=== PATIENT | male | born 1940 | race Caucasian/White ===

== ENCOUNTER 2021-04-06 09:52 | Inpatient (IN) ==
--- NOTE | 2021-04-01 14:06 | Anesthesiology Consultation ---
Date of Service April 01, 2021 Assessment & Plan (1) Encounter for pre-operative examination: - check BSG am DOS. - COVID screening: Per financial sales representative on 04/01/2021: Travel screen negative, no known COVID-19 positive contacts or current COVID-19 related symptoms in past 2 weeks. Patient vaccinated. Surgeon arranging preop COVID testing, scheduled 04/02/2021. Awaiting results. Chart Review Chart Review: Acceptable Risk for Surgery and Patient NOT seen in Pre Admission Testing History Surgery Operation Date: 04/06/21 09:50 Proposed Procedures p Transurethral Resection Prostate - Cole Ramírez MD Height/Weight Height: 6 ft Weight: 88.451 kg Allergies Allergy/AdvReac Type Severity Reaction Status Date / Time No Known Allergies Allergy Verified 04/01/21 13:19 Medications Home Medications Medication Instructions Recorded Confirmed Last Taken metformin 500 mg tablet 500 mg PO BID 02/03/21 04/01/21 Unknown dutasteride 0.5 mg capsule 0.5 mg PO PM 04/01/21 04/01/21 Unknown tamsulosin 0.4 mg capsule 0.4 mg PO PM 04/01/21 04/01/21 Unknown Past Medical History Medical History (Updated 04/01/21 @ 14:29 by Sofia House PA-C) BPH (benign prostatic hyperplasia) Diabetes NIDDM Osteoarthritis Urinary retention Past Surgical History Surgical History History of cataract surgery bilat History of cholecystectomy History of colonoscopy History of tooth extraction Social History Smoking Status: Never smoker Do You Dip or Chew Tobacco: No Hx Alcohol Use: Yes Alcohol type: hard liquor alcohol intake frequency: a few times a month Hx Substance Use: No substance use type: does not use Testing Electrocardiogram Date: 03/19/21 NSR, rate 82 bpm Chest X-Ray Date: 03/19/21 No acute cardiopulmonary disease
[~2021-04-06 09:52] MED LIST: LR 15ML/HR IV SCH; ceFAZolin 2000MG 2,000 MG/15 ML SYR IV SCH
[2021-04-06] MEDS ORDERED: LIDOCAINE 2% 2 ML VIAL/AMP(20MG/ML) INFIL ONE (10:29)
[2021-04-06] MEDS ORDERED: PROPOFOL IV EMULSION 10 MG/ML 20 ML VIAL IV ONE (10:29)
[2021-04-06] MEDS ORDERED: fentaNYL citrate 100 MCG/2 ML VIAL ONE (10:29)
[2021-04-06] MEDS ORDERED: HYDROmorphone INJ 2 MG/ML SYR/VIAL IV PRN (10:46)
[2021-04-06] MEDS ORDERED: ATROPINE SULFATE 0.1 MG/ML 10ML SYR IV PRN (10:46)
[2021-04-06] MEDS ORDERED: PROMETHAZINE HCL 12.5 MG in SODIUM CHLORIDE 0.9% 50 ML IV PRN (10:46)
[2021-04-06] MEDS ORDERED: ONDANSETRON INJ 2 MG/ML 2 ML VIAL IV PRN ×2 (10:46→13:56)
[2021-04-06] MEDS ORDERED: ePHEDrine sulfate 50 MG/ML AMP IV PRN (10:46)
[2021-04-06] MEDS ORDERED: fentaNYL citrate 100 MCG/2 ML VIAL IV PRN (10:46)
--- NOTE | 2021-04-06 11:19 | History & Physical Report ---
Date of Service April 06, 2021 Assessment & Plan (1) Urinary retention: (2) BPH w/o urinary obs/LUTS: Plan: We reviewed his urinary retention and the plan for TURP. We reviewed the risks and benefits of the procedure including bleeding, infection, injury to nearby structures, need for additional procedure, ongoing urinary retention, urinary leakage. He expressed understanding and agrees to proceed with TURP. History of Present Illness Chief Complaint: Urinary retention Primary Care Provider: Barry Stevenson This is a 80-year-old male with history of enlarged prostate, who has recently been evaluated in the urology office for urinary retention. He has required catheters and has failed voiding trials, and is currently catheter dependent. He had a cystoscopy which demonstrated significant prostatic hyperplasia. Review of outside CT scan indicates that his prostate is probably 90 to 100 g in size. He was seen earlier this year, at which time we discussed options for outlet surgery including TURP, Holep or even simple prostatectomy. He elected to undergo TURP and presents to the OR today for this procedure. Allergies Allergy/AdvReac Type Severity Reaction Status Date / Time No Known Allergies Allergy Verified 04/06/21 10:12 Home Medications Medication Instructions Recorded Confirmed Type metformin 500 mg tablet 500 mg PO BID 02/03/21 04/06/21 History dutasteride 0.5 mg capsule 0.5 mg PO PM 04/01/21 04/06/21 History tamsulosin 0.4 mg capsule 0.4 mg PO PM 04/01/21 04/06/21 History Past Med/Surg History Medical History BPH (benign prostatic hyperplasia) Diabetes NIDDM Osteoarthritis Urinary retention Surgical History History of cataract surgery bilat History of cholecystectomy History of colonoscopy History of tooth extraction Social History (Updated 02/03/21 @ 15:16 by Mica Simons) Smoking Status: Never smoker Second Hand Exposure: No; Do You Dip or Chew Tobacco: No; Tobacco Cessation Education Requested by Patient: No Hx Alcohol Use: Yes Alcohol type: hard liquor Hx Substance Use: No Preferred Language: Qatari Communication Ability: Effective Leaf Blender Required: No Beliefs That Will Affect Care: None marital status: Current Living Situation: Spouse current occupational status: retired Other Information That Helps Us Care for You: No Feels Safe at Home: Yes Safety Concerns: Feels Safe At This Time Assistive Devices: Glasses Review of Systems 14 point review of systems negative except for otherwise indicated. Physical Exam Constitutional: well developed and well nourished; no acute distress Eyes: + anicteric sclerae; pupils not irregular Respiratory: normal respiratory effort; no respiratory distress, does not use accessory muscles and no cough Cardiovascular: well perfused Gastrointestinal (Abdomen): Inspection/Auscultation: abdomen normal to inspection; abdomen not distended Musculoskeletal: Extremities: extremities normal to inspection Skin: normal turgor; no rashes and no lesions Neurologic: moves all extremities and awake Psychiatric: Orientation: alert and oriented x 3 Results & Data ([facility]) Vital Signs (Past 12 Hours) Vital Signs Temp Pulse Resp BP Pulse Ox 04/06/21 10:03 36.9 C 91 H 20 151/88 H 97
[2021-04-06] MEDS ORDERED: ONDANSETRON INJ 2 MG/ML 2 ML VIAL ONE (12:14)
[2021-04-06] MEDS ORDERED: PHENYLEPHRINE 100MCG/ML 5ML SYR ONE (12:14)
[2021-04-06] MEDS ORDERED: ePHEDrine sulfate 50 MG/ML SYR ONE (12:34)
--- NOTE | 2021-04-06 12:44 | Operative Report ---
PG Post Operative Report Pre & Post Diagnosis Operation Date: 04/06/21 11:45 Pre-Op Diagnosis: Urinary Retention Benign Prostatic Hyperplasia Post-Op Diagnosis: Urinary Retention Benign Prostatic Hyperplasia I identified the patient and participated in the time-out.: Yes Procedure Operation Date: 04/06/21 11:45 Actual Procedures p Transurethral Resection Prostate(Not Applicable) - Cole Ramírez MD Surgeon Cole Ramírez MD Chef Kitchen Manager none Estimated Blood Loss 25 Findings Consistent with Post-Op Diagnosis Specimens prostate chips Drains 22 Cypriot three-way Keller catheter per urethra, 30 mL in the balloon, with CBI running. Anesthesia Type General Complications none Disposition Disposition: Recovery Room Indications This is a 80-year-old male who was recently seen in the the urology office for evaluation of BPH and urinary retention. After thorough counseling, he agreed to proceed with TURP, and presents the OR today for this procedure. Description of Procedure The patient was identified in the holding area and informed consent was confirmed. He was taken to the operating room where general anesthesia was initiated. He was placed in the dorsal lithotomy position with all pressure points appropriately padded. He was prepped and draped in the usual sterile fashion and a preoperative timeout was performed. A well-lubricated resectoscope was inserted per urethra and panendoscopy was performed. The pendulous urethra was normal with no strictures or mucosal abnormalities. The prostate was notably enlarged with what appeared to be an intravesical component. The bladder was trabeculated and ureteral orifices were visualized in orthotopic position. The prostate was systematically resected, starting with the median lobe, taking resection down until the capsular fibers could be identified. The proximal resection was up to the bladder neck, taking care not to injure the ureteral orifices. The distal resection extended to the verumontanum, taking care to avoid the sphincter. The lateral lobes were then resected down. Due to the large size of the prostate, on the lateral aspects the resection did not reach down to the capsule, however at the end of resection there was a nice, open channel. Meticulous hemostasis was obtained using the button electrode. The prostate chips were evacuated from the bladder and sent for pathologic analysis. A final inspection demonstrated no injury to the ureteral orifices or the sphincter, no remaining prostate chips, and excellent hemostasis at low pressure. A 22 Fr 3-way keller catheter was placed. The balloon was inflated with 30 mL of normal saline and the catheter was attached to gravity drainage with continuous irrigation running. The patient was then awakened from anesthesia and was brought to the PACU in stable condition. I attest to the content of the Intraoperative Record and any orders documented therein. Any exceptions are noted below.
--- NOTE | 2021-04-06 13:37 | Anesthesiology Progress Note ---
Date of Service April 06, 2021 Anesthesia Post Procedure Vital Signs Vital Signs: Temp Pulse Pulse Resp BP Pulse Ox 04/06/21 13:25 36.4 C L 62 14 116/68 94 04/06/21 13:15 73 18 114/73 95 04/06/21 13:05 72 18 117/72 94 04/06/21 12:55 74 17 105/75 94 04/06/21 12:45 36.3 C L 74 20 124/71 95 04/06/21 10:03 36.9 C 91 H 20 151/88 H 97 Transfer of Care Handoff Completed per policy Notes Mental Status: alert / awake / arousable and participated in evaluation Patient Amnestic to Procedure: Yes Nausea / Vomiting: adequately controlled Pain: adequately controlled Airway Patency, RR, SpO2: stable & adequate BP & HR: stable & adequate Hydration State: stable & adequate Anesthetic Complications: no major complications apparent
[2021-04-06] MEDS ORDERED: ACETAMINOPHEN 325 MG TAB PO PRN (13:56)
[2021-04-06] MEDS ORDERED: oxyCODONE HCL IR 5 MG TAB (IMMEDIATE RELEASE) PO PRN (13:56)
[2021-04-06] MEDS ORDERED: BELLADONNA/OPIUM SUPP 60 MG SUPP PR PRN (13:56)
[2021-04-06] MEDS ORDERED: HYDROmorphone INJ 0.5 MG/0.5 ML SYR IV PRN (13:56)
[2021-04-06] MEDS ORDERED: PHARMACY GLYCEMIC MGMT CONSULT PRN (13:56)
[2021-04-06] MEDS: LACTATED RINGER'S 1,000 ML IV SCH ×2 (14:08→21:57)
[2021-04-06] MEDS ORDERED: GLUCOSE 10 TABS/TUBE PO PRN (14:30)
[2021-04-06] MEDS ORDERED: GLUCAGON FOR INJ 1 MG VIAL IM PRN (14:30)
[2021-04-06] MEDS ORDERED: CARBOHYDRATES FOR HYPOGLYCEMIA PO PRN (14:30)
[2021-04-06] MEDS ORDERED: DEXTROSE 50% 50 ML SYRINGE IV PRN (14:30)
[2021-04-06] MEDS ORDERED: GLUCOSE 40% GEL 15 GM TUBE PO PRN (14:30)
--- NOTE | 2021-04-06 14:30 | Pharmacy Report ---
Glycemic Ortho Sign Off Note - Date of Service April 06, 2021 - Scope Glycemic Pharmacist consulted for glycemic control and to write orders per [facility] inpatient glycemic control protocol. - Objective Accuchecks BSG (last 24hrs):: 04/06/21 04/06/21 10:12 12:49 POC Glucose 124 H 114 H - Assessment * Pt is maintained on oral antidiabeticagent[s]as anoutpatient * Oral agents are not recommended for inpatient use d/t drug interactions, changing PO intake, and difficulty titrating for acute hyper/hypoglycemia. * Recommended regimen for inpatient use is SQ insulin * Low stress weight based insulin dosing appropriate since patient has minimal risk factors for insulin resistance (i.e. no steroids). * Appropriate to DC insulin and resume outpatient antidiabetic regimen at discharge * Goal is to maintain BSGs <200 mg/dl (ideally <150 mg/dl) to prevent post op complications - Plan For Inpatient Glycemic Control * Basal insulin * Not needed based on A1c, pre-op BSGs, and minimal risk factors for insulin resistance * Bolus insulin * Utilize low stress weight based NovoLog parameters per scale ACHS * Pharmacy has entered glycemic orders and is signing off of the glycemic consult. We will no longer be making adjustments to inpatient regimen. Please feel free to re-consult if needed. Thank you.
[2021-04-06] MEDS: INSULIN ASPART PER UNIT SC SCH ×2 (17:29→21:20)
[2021-04-06] MEDS ORDERED: TAMSULOSIN HCL 0.4 MG CAP PO SCH (21:00)
[2021-04-06] MEDS: SULFAMETHOXAZOLE/TRIMETHOPRIM DS 800/160MG TAB PO SCH (21:06)
[2021-04-06] MEDS: HEPARIN SOD 5,000 UNIT/0.5 ML VIAL SQ SCH (21:06)
[2021-04-07] MEDS: LACTATED RINGER'S 1,000 ML IV SCH (07:47)
[2021-04-07] MEDS: SULFAMETHOXAZOLE/TRIMETHOPRIM DS 800/160MG TAB PO SCH (07:48)
[2021-04-07] MEDS: HEPARIN SOD 5,000 UNIT/0.5 ML VIAL SQ SCH (07:48)
[2021-04-07 07:58] LABS: BUN Creatinine Ratio 13.6 (10-20); Calcium 8.8 mg/dl (8.5-10.1); Creatinine Clr Calc Pharmacy 64.9 ml/min; Est GFR (African American) 80.3 ml/min; Est GFR (Non-African American) 69.3 ml/min
--- NOTE | 2021-04-07 08:11 | Urology Progress Note ---
Date of Service April 07, 2021 Assessment & Plan (1) Urinary retention: (2) BPH w/o urinary obs/LUTS: Plan: Doing well, POD#1 from TURP. No issues with CBI overnight. We will plan to keep the catheter until early next week. CBI was clamped at the bedside this morning. He will have some breakfast and walk around. If urine remains clear, he will be appropriate for discharge home. Admission and Anticipated Discharge Date Admission Date: April 06, 2021 Subjective Did well overnight No issues with CBI, did not require hand irrigation Hematuria seems to have resolved at this point Tolerating a diet Has not ambulated much yet Denies any abdominal pain Physical Exam Constitutional: Well-appearing, NAD Respiratory: Breathing comfortably on room air Gastrointestinal (Abdomen): Soft, nontender Genitourinary: Vázquez catheter in good position, draining clear urine on slow drip CBI. Results & Data ([facility]) Vital Signs (Past 12 Hours) Vital Signs Temp Pulse Resp BP Pulse Ox 04/07/21 04:12 36.8 C 71 17 107/67 94 04/06/21 23:24 36.9 C 70 17 118/74 94 04/06/21 20:51 36.7 C 87 17 121/69 95 PG Care Time/CCT Total # of Minutes Spent Total Time Spent with Patient: Total time spent is greater than 50% in coordination of care (as documented) at patient's floor/unit and/or counseling patient: Coding Level of Care Code 40981 Subseq Hosp Care Lvl 1 Diagnoses Urinary retention R33.9 BPH w/o urinary obs/LUTS N40.0
[2021-04-07] MEDS: INSULIN ASPART PER UNIT SC SCH ×2 (08:44→12:42)
--- NOTE | 2021-04-07 12:21 | Discharge Summary ---
Date of Service April 07, 2021 Admission HPI Per Admitting Provider This is a 80-year-old male with history of enlarged prostate, who has recently been evaluated in the urology office for urinary retention. He has required catheters and has failed voiding trials, and is currently catheter dependent. He had a cystoscopy which demonstrated significant prostatic hyperplasia. Review of outside CT scan indicates that his prostate is probably 90 to 100 g in size. He was seen earlier this year, at which time we discussed options for outlet surgery including TURP, Holep or even simple prostatectomy. He elected to undergo TURP and presented for this procedure. Admission Exam Per Admitting Provider Constitutional: well developed and well nourished; no acute distress Eyes: + anicteric sclerae; pupils not irregula r Respiratory: normal respiratory effort; no respiratory distress, does not use accessory muscles and no cough Cardiovascular: well perfused Gastrointestinal (Abdomen): Inspection/Auscultation: abdomen normal to inspection; abdomen not distended Musculoskeletal: Extremities: extremities normal to inspection Skin: normal turgor; no rashes and no lesions Neurologic: moves all extremities and awake Psychiatric: Orientation: alert and oriented x 3 Principal Diagnosis Urinary Retention, Benign Prostatic Hyperplasia Discharge Exam Constitutional:Well-appearing, NAD Respiratory:Breathing comfortably on room air Gastrointestinal (Abdomen):Soft, nontender Genitourinary:Vázquez catheter in good position, draining clear urine on slow drip CBI. Discharge Data Allergies Allergy/AdvReac Type Severity Reaction Status Date / Time No Known Allergies Allergy Verified 04/06/21 10:12 Procedures Performed Operation Date: 04/06/21 11:45 Actual Procedures p Transurethral Resection Prostate(Not Applicable) - Cole Ramírez MD Hospital Course (1) Urinary retention: (2) BPH w/o urinary obs/LUTS: - Pt doing well POD#1 from TURP. - No issues with CBI overnight. CBI was clamped at the bedside POD #1 in the AM. - Urine remained clear off CBI. - Tolerated PO diet, no nausea or vomiting. - Ambulated without issue. - Pt stable for discharge. - Discharged home with Vázquez catheter, with plans to keep in place with outpatient voiding trial in 5-7 days. - Expected clinical course reviewed with patient, he verbalized understanding. All questions answered. - Will arrange appropriate postoperative follow-up appointments. Total Time Total Time Spent Total Time Spent (In Minutes): 15 Discharge Plan Discharge Items Patient Disposition: Home - Self-Care Reason For Visit: Urinary Retention Benign Prostatic Hyperplasia Discharge Diagnosis: urinary retention Activity: Per Instructions section Non-emergency contact: Surgeon and Urologist Call non-emergency contact if: your pain is not controlled and your temperature is above 101 Follow-up/Referrals: Cole Ramírez MD [Physician] - 05/12/21 10:00 am Barry Stevenson MD [Primary Care Provider] - (please have patient call for follow up) Diet: Carb Consistent or DM2 Addtl Attending Provider Instructions: The surgery you had was TURP (Trans-urethral resection of the prostate) Please take all medications as prescribed and keep all follow-ups as scheduled. Please call our office at [phone] with any questions, concerns or need to reschedule appointments for any reason. We are happy to assist you. Medications: -Please resume your normal medications as previously prescribed. -Take a stool softener such as colace or Miralax to keep your stool soft. The goal is one soft bowel movement daily. -For pain, it is ok to take tylenol. You can also try pyridium (also known as AZO). This can be gotten [id number]-pxc-[id number]. It turns your urine a bright orange color. -You have been prescribed an antibiotic (Bactrim). Please take this twice daily for the next 5 days. Activity: -Avoid straining or bearing down for the next 1-2 weeks. This can cause or increase bleeding. Avoiding straining to have bowel movements. -If you notice blood in your urine, try to remain well-hydrated to keep the urine dilute. -For the next 2 weeks, avoid activities that put pressure on your perineum (area behind the scrotum), such as riding a bike. What to expect after your procedure: -If a catheter was left in place, we will have you come to the office in the next couple days to remove it. -You may notice some blood in your urine. As long as your catheter is draining, this is ok. -You may have increased urinary frequency and urgency; this should improve with time. -You may notice some urinary leaking, especially with coughing/sneezing/bearing down. This should improve with time. When to call [facility] Urology at [phone]: Fever of 101F or higher Heavy bleeding Pain that is not controlled with medicine Uncontrolled vomiting Problems urinating or inability to urinate Our office will call to schedule an appointment for catheter removal. Pending Studies at Discharge: No Stand-Alone Forms: My [facility] Medications and DC Order Prescriptions: New sulfamethoxazole-trimethoprim [Bactrim DS] 800-160 mg tablet 1 tab PO BID 5 Days Qty: 10 RF: 0 Continued metformin 500 mg tablet 500 mg PO BID RF: 0 tamsulosin 0.4 mg capsule 0.4 mg PO PM RF: 0 dutasteride 0.5 mg capsule 0.5 mg PO PM RF: 0 Discharge Orders: Discharge Order (Routine); Ordered 04/07/21 Ordered By: Juana Otero/Other Patient Handouts: Emptying and Cleaning Your ..., Leg Bag Care Dc, ED Vázquez Catheter, Care Admission Data Admit Date/Time: 04/06/21 12:53 Attending Provider: Cole Ramírez Admit Provider: Cole Ramírez Primary Care Provider: Barry Stevenson Other Interventions: Discharge Summary Assessment (RN) Last Done: 04/07/21 11:25 Coding Level of Care Code D/C DAY MANAGEMENT <30 MINS Diagnoses Urinary retention R33.9 BPH w/o urinary obs/LUTS N40.0
== END 2021-04-07 12:59 | disposition home or self-care (01) | DRG 714 ==
LOC: ASU 09:52 → 3N 12:53